=== PATIENT | male | born 1975 | race Caucasian/White ===

== ENCOUNTER 2017-03-04 12:20 | Emergency (ER) | payer BC ==
[~2017-03-04] VITALS: Ht 180.3 cm; Wt 105.0 kg
[2017-03-04 12:22] VITALS: BP 158/93; PULSE 85; RESP 17; TEMP 98.4; O2SAT 96
--- NOTE | 2017-03-04 15:04 | PD ---
HPI Chief Complaint: Laceration/Skin Injury Time Seen by Provider: 14:55 Travel History International Travel<30 days: No Contact w/Intl Traveler<30days: No Traveled to known affect area: No History of Present Illness HPI 41-year-old male presents to emergency Department with complaint of a laceration to the tip of his left index finger that occurred approximately 4 hours ago while using a die trimmer. He is not up-to-date on tetanus vaccination. Denies paresthesias, loss of sensation, decreased range of motion , decreased strength to the affected finger. Has controlled bleeding by applying a bandage. Takes a baby aspirin every other day. Has not taken any medications to alleviate pain. Rates pain 05/22. Describes the pain as throbbing sensation. Allergies to sulfa. Has no other medical complaints. No other modifying factors or associated signs and symptoms. PFSH Social History Tobacco Use: No Allergies-Medications (Allergen,Severity, Reaction): Coded Allergies: Sulfa (Sulfonamide Antibiotics) (Verified Allergy, Unknown, 03/04/17) Reported Meds & Prescriptions Reported Meds & Active Scripts Active Lortab (Hydrocodone-Acetaminophen) 5-325 Mg Tab 1 Tab PO Q4H PRN Ibuprofen 800 Mg Tab 800 Mg PO Q6HR PRN Keflex (Cephalexin) 500 Mg Cap 500 Mg PO Q6H 10 Days Reported Valtrex (Valacyclovir HCl) 500 Mg Tab 500 Mg PO DAILY Aspirin 81 Mg Chew 81 Mg CHEW DAILY Odefsey (Faagufjmhdlba-Cpzcaccyrio-Kpmiowyzh Alafenam) 200-200-25 Mg Tab 1 Tab PO DAILY Review of Systems Except as stated in HPI: all other systems reviewed are Neg Physical Exam Narrative GENERAL: Well-nourished, well-developed male patient, in no acute distress SKIN: Warm and dry. Ventral, distal aspect of left second digit with laceration across the finger, involving the nailbed; finger with full range of motion and good opposition; less than 3 second cap refill; sensory intact. Left upper exhorted supplemented with 2+ radial pulses and sensory intact without erythema or edema. HEAD: Atraumatic. Normocephalic. EYES: Pupils equal and round. No scleral icterus. No injection or drainage. ENT: Mucosa pink and moist. Airway patent. NECK: Trachea midline. CARDIOVASCULAR: Regular rate. RESPIRATORY: No accessory muscle use. GASTROINTESTINAL: Obese. MUSCULOSKELETAL: No obvious deformities. No clubbing. No cyanosis. No edema. NEUROLOGICAL: Awake and alert. Oriented 3. No obvious cranial nerve deficits. Motor grossly within normal limits. Normal speech. PSYCHIATRIC: Appropriate mood and affect; insight and judgment normal. Data Data Last Documented VS Vital Signs Date Time Temp Pulse Resp B/P (MAP) Pulse Ox O2 Delivery O2 Flow Rate FiO2 03/04/17 12:22 98.4 85 17 158/93 (114) 96 Orders Orders Finger (Kpp4pdt) (03/04/17 ) Tetanus/Diphtheria Tox Adult (Tetanus/Di (03/04/17 15:15) Bupivacaine Pf 0.5% Inj (Marcaine Pf 0.5 (03/04/17 15:15) Lidocaine 1% Inj (50 Ml) (Xylocaine 1% I (03/04/17 15:15) Iv Access Insert/Monitor (03/04/17 15:30) Cefazolin Inj (Ancef Inj) (03/04/17 15:30) Ed Discharge Order (03/04/17 16:52) [facility] Medical Decision Making Medical Screen Exam Complete: Yes Emergency Medical Condition: Yes Medical Record Reviewed: Yes Differential Diagnosis Abdomen laceration, laceration, abrasion Narrative Course 41-year-old male with a laceration of the left second digit involving the nailbed. Tetanus updated in the ER. I offered the patient pain medication and he declined. Left index finger x-ray ordered. 1528: Left index finger x-ray concludes: Examination of the second digit of the left hand demonstrates a nondisplaced fracture/laceration through the dorsal distal cortex of the distal phalanx. IV site obtained. Ancef 1 g administered in the ER. See my procedure note for laceration repair. Keflex, ibuprofen prescribed for home. Instructed patient to follow up with hand surgeon. Instructed patient to follow up with primary care provider. Patient verbalizes understanding and agreement with treatment plan. Patient is medically cleared and stable for discharge. Discussed reasons to return to the emergency department. Patient agrees with treatment plan. The patients vital signs are stable and the patient is stable for outpatient follow-up and treatment. Patient discharged home, stable and in no acute distress. Procedures Procedure Narrative LACERATION LOCATION: [place], Distal aspect of left index finger LENGTH: 1.5 cm NUMBER OF STITCHES/SHALOM: 4 simple interrupted sutures REPAIR: The area of the laceration was prepped with Betadine and sterilely draped. The finger was digitally blocked using 0.5% bupivacaine and 1% lidocaine. The distal aspect of the fingernail was removed and the proximal aspect of the fingernail remained intact The wound was copiously irrigated and explored without evidence of foreign body, tendon injury or neurovascular injury. The wound was closed using 4-0 Prolene. This was a single layer repair. A sterile dressing was applied. The patient was advised to keep the dressing clean and dry. Patient tolerated the procedure well. Diagnosis Primary Impression: Laceration of finger of left hand with damage to nail Qualified Codes: S61.311A - Laceration without foreign body of left index finger with damage to nail, initial encounter Additional Impression: Open finger fracture Qualified Codes: S62.641B - Nondisplaced fracture of proximal phalanx of left index finger, initial encounter for open fracture Referrals: Hand Surgeon Primary Care Physician Patient Instructions: Care For Your Stitches (ED), Finger Laceration (ED), General Instructions Additional Instructions: Keep area clean and dry Limit left index finger activity to decrease risk of sutures coming undone Ibuprofen or Tylenol as directed and as needed for pain and inflammation Ice pack to area as needed to decrease pain Return to the emergency department, follow-up with primary care provider or hand surgeon in 7-10 days for suture removal Follow up with primary care provider Return to the emergency department immediately with worsening of symptoms, particularly if reddened streaks up or down the affected extremity from the suture site, fever, numbness/tingling in the affected extremity, loss of sensation in the affected extremity, severe swelling of the affected Med/Other Pt SpecificInfo: Prescription(s) given Scripts Hydrocodone-Acetaminophen (Lortab) 5-325 Mg Tab 1 TAB PO Q4H Y for PAIN, #12 TAB 0 Refills Prov: Valarie FriedmanP 03/04/17 Ibuprofen (Ibuprofen) 800 Mg Tab 800 MG PO Q6HR Y for PAIN, #30 TAB 0 Refills Prov: Valarie FriedmanP 03/04/17 Cephalexin (Keflex) 500 Mg Cap 500 MG PO Q6H for Infection for 10 Days, #40 CAP 0 Refills Prov: Valarie Friedman 03/04/17 Disposition: 01 DISCHARGE HOME Condition: Stable Valarie Friedman Mar 04, 2017 15:03
[2017-03-04] MEDS ORDERED: ASPI81CH CHEW (15:05)
[2017-03-04] MEDS ORDERED: VALT500T PO (15:05)
[2017-03-04] MEDS ORDERED: EMTR1TAB2 PO (15:05)
[2017-03-04] MEDS ORDERED: BUPIVACAINE HCL PF 0.5% 10 ML VIAL INFIL ONE (15:15)
[2017-03-04] MEDS ORDERED: LIDOCAINE HCL 1% 50 ML VIAL INFIL ONE (15:15)
[2017-03-04] MEDS ORDERED: TETANUS/DIPHTHERIA TOXOID ADULT 0.5 ML VIAL IM ONE (15:15)
--- NOTE | 2017-03-04 15:23 | RADRPT ---
EXAM DATE/TIME: 03/04/2017 15:16 [facility] COMPARISON: No previous studies available for comparison. INDICATIONS : Left hand, 2nd digit laceration from upper trimmer. MEDICAL HISTORY : None. SURGICAL HISTORY : None. ENCOUNTER: Initial ACUITY: 1 day PAIN SCORE: 2/10 LOCATION: Left hand, distal 2nd digit. FINDINGS: Examination of the second digit of the left hand demonstrates a nondisplaced fracture/laceration thro ugh the dorsal distal cortex of the distal phalanx. CONCLUSION: Nondisplaced fracture/osseous laceration through the distal dorsal cortex of the distal phalanx of the second ray. Grayson Porras MD on March 04, 2017 at 15:19 Board Certified Radiologist. This report was verified electronically.
[2017-03-04] MEDS ORDERED: IBUP800T23 PO (15:32)
[2017-03-04] MEDS ORDERED: CEPH-460 PO (15:32)
[2017-03-04] MEDS ORDERED: HYDR-3533 PO (16:52)
[2017-03-04 16:58] VITALS: BP 119/68
== END 2017-03-04 16:59 | disposition home or self-care (01) ==
LOC: NEPD 12:20
DX: S61.311A Laceration without foreign body of left index finger with damage to nail, initial encounter (principal); S62.641B Nondisplaced fracture of proximal phalanx of left index finger, initial encounter for open fracture; W29.3XXA Contact with powered garden and outdoor hand tools and machinery, initial encounter; Y93.H2 Activity, gardening and landscaping; Z23 Encounter for immunization
CPT/HCPCS: 12001; 73140; 90471; 90714; 96374; 99284; J0690